=== PATIENT | female | born 1955 ===

== ENCOUNTER 2016-08-30 17:50 | Emergency (ER) | payer BC, OTHER ==
[2016-08-30 19:40] VITALS: BP 129/68
--- NOTE | 2016-08-30 20:17 | UC ---
Throat Pain/Nasal Roxie HPI - HPI Summary HPI Summary: This is a 61 yo female with multiple comorbid conditions including asthma, DM, depression, HTN, HLD, hypothyroidism who presents with a 2-3 week h/o of sinus roxie, cough and ear fullnes. Denies tinnitus or hearing changes. She does wear bilateral hearing aides. No fevers. Some nausea. She takes claritin daily and has been using a saline nasal spray. - History of Current Complaint Chief Complaint: UCGeneralIllness Stated Complaint: SINUS - Allergies/Home Medications Allergies/Adverse Reactions: Allergies Allergy/AdvReac Type Severity Reaction Status Date / Time Erythromycin AdvReac GI Verified 08/30/16 19:41 Home Medications: Home Medications Albuterol HFA INHALER* [Ventolin HFA Inhaler*] 2 puff INH Q4H PRN 08/30/16 [ History Confirmed 08/30/16] Allopurinol TAB* [Zyloprim 100 MG TAB*] 100 mg PO DAILY 08/30/16 [History Confirmed 08/30/16] Alprazolam XR (NF) [Xanax XR (NF)] 1 tab QID 08/30/16 [History Confirmed ] Aspirin [Aspirin Adult Low Dose 81 MG] 81 mg PO DAILY 08/30/16 [History Confirmed 08/30/16] Atorvastatin* [Lipitor 40 MG*] 40 mg PO DAILY 08/30/16 [History Confirmed ] Bisoprolol Fumarate [Bisoprolol Fumarate-] 10 mg PO DAILY 08/30/16 [History Confirmed 08/30/16] Ezetimibe TAB* [Zetia TAB*] 10 mg PO DAILY 08/30/16 [History Confirmed 08/30/16] Fluticasone-Salmeterol 500-50* [Advair Diskus 500-50*] 1 puff INH BID 08/30/16 [ History Confirmed 08/30/16] Insulin GLARGINE(*) [Lantus(*)] 44 units SUBCUT ONCE 08/30/16 [History Confirmed 08/30/16] Levothyroxine TAB* [Synthroid 125 MCG TAB*] 125 mcg PO 0800 08/30/16 [History Confirmed 08/30/16] Loratadine [Claritin 10 MG CAP] 10 mg PO DAILY 08/30/16 [History Confirmed 08/30] Zaiew-0-Sevf Ethyl Esters (NF) [Lovaza (NF)] 2 tab PO DAILY 08/30/16 [History Confirmed 08/30/16] Potassium Chlor TAB* [Klor Con ER TAB 10 MEQ*] 10 meq PO DAILY 08/30/16 [ History Confirmed 08/30/16] Torsemide TAB* [Demadex 20 MG*] 20 mg PO DAILY 08/30/16 [History Confirmed 08/30] Venlafaxine EXT RELEASE CAP* [Effexor Xr CAP*] 75 mg PO DAILY 08/30/16 [History Confirmed 08/30/16] amLODIPine TAB* [Norvasc TAB*] 5 mg PO DAILY 08/30/16 [History Confirmed ] cloNIDine TAB* [Catapres 0.1 MG TAB*] 0.1 mg PO TID 08/30/16 [History Confirmed 08/30/16] PMH/Surg Hx/FS Hx/Imm Hx Endocrine History Of: Reports: Diabetes, Thyroid Disease - hypo Cardiovascular History Of: Reports: Cardiac Disorders - CO, Hypertension Respiratory History Of: Reports: Asthma - Surgical History Surgical History: Yes Surgery Procedure, Year, and Place: laminectomy '. appendectomy. cardiac cath. - Family History Known Family History: Positive: Other - celiac disease, depression - Social History Alcohol Use: None Substance Use Type: None Smoking Status (MU): Never Smoked Tobacco - Immunization History Most Recent Influenza Vaccination: [id number] Review of Systems Constitutional: Negative Skin: Negative Eyes: Negative ENT: Sore Throat, Ear Ache, Nasal Discharge Respiratory: Cough Cardiovascular: Negative Gastrointestinal: Negative Genitourinary: Negative Motor: Negative Neurovascular: Negative Musculoskeletal: Negative Neurological: Negative Psychological: Negative All Other Systems Reviewed And Are Negative: Yes Physical Exam Triage Information Reviewed: Yes Appearance: Well-Appearing Vital Signs: Initial Vital Signs Temp 98.6 F 08/30/16 19:33 Pulse 86 08/30/16 19:33 Resp 18 08/30/16 19:33 BP 129/68 08/30/16 19:33 Pulse Ox 100 08/30/16 19:33 Vital Signs Reviewed: Yes ENT: Positive: Nasal congestion, TM dull. Negative: Pharyngeal erythema, Tonsillar swelling, Tonsillar exudate Neck: Positive: Supple, Nontender Respiratory: Positive: Lungs clear, Normal breath sounds, No respiratory distress Cardiovascular: Positive: RRR, No Murmur Skin Exam: Normal Throat Pain/Nasal Course/Dx - Course Course Of Treatment: This is a 61 yo female with a complicated medical history who presents with a 2 week h/o of sinus complaints. Will treat for sinusitis with Cefdinir and recommended starting a steroid nasal spray and continuing her antihistamine and saline spray. - Differential Dx/Diagnosis Differential Diagnosis/HQI/PQRI: Laryngitis, Pharyngitis, Sinusitis Provider Diagnoses: Acute sinusitis Discharge - Discharge Plan Condition: Stable Disposition: HOME Prescriptions: Cefdinir [Cefdinir 300 MG CAP] 300 mg PO BID #28 cap Patient Education Materials: Sinusitis (ED) Referrals: Tim Michelle MD [Primary Care Provider] - Additional Instructions: Activity: No restrictions Instructions: 1. Please take antibiotic as directed 2. Please start using Flonase (1 spray in each nostril twice daily)
== END 2016-08-30 20:15 | disposition home or self-care (01) ==
LOC: UCCORT 17:50
DX: J01.90 Acute sinusitis, unspecified (principal); E11.9 Type 2 diabetes mellitus without complications; Z79.4 Long term (current) use of insulin; E03.9 Hypothyroidism, unspecified; I10 Essential (primary) hypertension; Z88.1 Allergy status to other antibiotic agents
CPT/HCPCS: 99202; G0463